=== PATIENT | female | born 1985 | race Caucasian/White ===

== ENCOUNTER 2021-10-30 09:38 | Emergency (ER) | payer OTHER ==
[2021-10-30 09:54] VITALS: BP 129/83; PULSE 68
[2021-10-30] MEDS ORDERED: Sodium Chloride 0.9% 10 ML Syringe FLUSH PRN ×2 (11:10→13:03)
[2021-10-30] MEDS ORDERED: Ondansetron 4 MG/2 ML SDV IVPUSH ONE (11:11)
[2021-10-30] MEDS ORDERED: HYDROmorphone 0.5 MG/0.5 ML Syringe IVPUSH ONE (11:11)
[2021-10-30] MEDS ORDERED: Sodium Chloride 0.9% 1,000 ML IV STA (11:11)
[2021-10-30] MEDS ORDERED: Iopamidol 612 MG/ML 100 ML Bottle IVPUSH ONE (13:03)
[2021-10-30] MEDS ORDERED: Levofloxacin 750 MG Tab PO ONE (13:43)
[2021-10-30] MEDS ORDERED: metroNIDAZOLE 500 MG Tab PO ONE (13:43)
[2021-10-30] MEDS ORDERED: Ketorolac 30 MG/ML SDV IVPUSH ONE (13:43)
== END 2021-10-30 14:53 | disposition home or self-care (01) ==
LOC: JD.ED 09:38
DX: K57.32 Diverticulitis of large intestine without perforation or abscess without bleeding (principal); E66.9 Obesity, unspecified; Z68.35 Body mass index [BMI] 35.0-35.9, adult; Z88.5 Allergy status to narcotic agent; Z88.2 Allergy status to sulfonamides
CPT/HCPCS: 36415; 74177; 80053; 81001; 84703; 85025; 86140; 96361; 96374; 96375; 99284; A9270; J1170; J1885; J2405; J3490; J7030; Q9967

== ENCOUNTER 2022-05-16 08:14 | Emergency (ER) | payer OTHER ==
[2022-05-16 08:31] VITALS: BP 112/73; PULSE 76
[2022-05-16] MEDS ORDERED: Orphenadrine 100 MG Tab.ER PO STA (08:59)
== END 2022-05-16 10:13 | disposition home or self-care (01) ==
LOC: JD.ED 08:14
DX: M54.50 Low back pain, unspecified (principal); E66.9 Obesity, unspecified; Z68.35 Body mass index [BMI] 35.0-35.9, adult; Z88.5 Allergy status to narcotic agent; Z88.2 Allergy status to sulfonamides
CPT/HCPCS: 99283; A9270

== ENCOUNTER 2023-05-26 01:44 | Emergency (ER) | payer OTHER ==
[2023-05-26] MEDS: Cyclobenzaprine 10 MG Tab PO ONE (02:16)
[2023-05-26] MEDS: Ketorolac 60 MG/2 ML SDV IM ONE (02:17)
[2023-05-26] MEDS: methylPREDNISolone Sodium Succinate 125 MG/2 ML SDV IM ONE (02:17)
[2023-05-26 03:18] VITALS: BP 145/89; PULSE 77
== END 2023-05-26 03:15 | disposition home or self-care (01) ==
LOC: JD.ED 01:44
DX: S29.012A Strain of muscle and tendon of back wall of thorax, initial encounter (principal); J45.909 Unspecified asthma, uncomplicated; Z86.16 Personal history of COVID-19; Z90.49 Acquired absence of other specified parts of digestive tract; Z79.899 Other long term (current) drug therapy; Z88.2 Allergy status to sulfonamides; Z88.5 Allergy status to narcotic agent; X50.0XXA Overexertion from strenuous movement or load, initial encounter
CPT/HCPCS: 96372; 99283; A9270; J1885; J2930